=== PATIENT | female | born 1985 | race Hispanic/Latino ===

== ENCOUNTER 2017-11-17 05:04 | Inpatient (IN) | payer BC ==
[2017-11-17 06:06] VITALS: BMI 33.8
[2017-11-17] MEDS ORDERED: Lactated Ringer's 1,000 ML IV ONE (06:40)
[2017-11-17] MEDS ORDERED: Lactated Ringer's 1,000 ML IV SCH (06:45)
--- NOTE | 2017-11-17 09:49 | OBADHP ---
Datetime: 11/17/2017 06:44 Admit Comment, IP Provider: at 40 weeks and 6 days gestational age presents to OB ED complaini ng of contractions. Patient denies any vaginal bleeding or leakage of fluids. Patient reports good fe quinn movement. Patient with history of prior section. Patient with ultrasound done on 018 which reported polyhydramnios. Past medical history denies Past surgical history Medications vitamins No known drug allergies Obstetrical history full-term 1 Social history no tobacco, no drugs, no alcohol Physical exam: refer to physical exam findings Assessment: 40 weeks and 6 days gestational age, prior section, polyhydramnios. Possible early/latent labor. Plan: Admit to labor and delivery for management. Discussed plan with patient and all patient questions answered. Pelvic Type - PN: Adequate Extremities - PN: Normal Abdomen - PN: Normal Back - PN: Normal Breast - PN: Normal Lungs - PN: Normal Heart - PN: Normal Thyroid - PN: Normal Neurologic - PN: Normal HEENT - PN: Normal General - PN: Normal FHR - Baseline A Provider: 130s-140s Membranes, Provider: Intact Contraction Comments Provider: occasional IP Hx Assessment: The History has been Reviewed and is Current Vital Signs Provider: Reviewed; Within Normal Limits IP Chief Complaint: Uterine contractions NICHD Variability Prov Fetus A: Moderate 6-25bpm NICHD Accel Fetus A IP Provider: [id number] FHR Category Provider Fetus A: Category I NICHD Decel Fetus A IP Provider: None Dilatation, Provider: 3-4 Effacement, Provider: 50 Station, Provider: -2 Genitourinary Exam: Normal DTRs - PN: Normal EGA AdmitDate IP: 40.6 IP Adm Impression: Term, intrauterine IP Admit Plan: Admit to unit; Initiate protocol
[2017-11-17 09:54] LABS: BASO % 0.3 % (0.0-2.0); EOS # 0.1 K/uL (0.0-0.7); EOS % 0.5 % (0.0-4.0); HEMOGLOBIN 13.5 g/dL (12.0-16.0); LYMPH # 2.4 K/uL (1.0-4.3); LYMPH % 16.6 % (20.0-40.0); MEAN CELL VOLUME 92.4 fl (81.0-99.0); MEAN CORPUSCULAR HEMOGLOBIN 31.2 pg (27.0-31.0); MEAN CORPUSCULAR HGB CONC 33.8 g/dL (33.0-37.0); MEAN PLATELET VOLUME 7.5 fl (7.2-11.7); MONO # 0.6 K/uL (0.0-0.8); MONO % 4.5 % (0.0-10.0); NEUT # 11.2 K/uL (1.8-7.0); NEUT % 78.1 % (50.0-75.0); NRBC % 0.1 % (0.0-0.0); RBC 4.31 Mil/uL (3.80-5.20); RED CELL DISTRIBUTION WIDTH 15.2 % (11.5-14.5); WHITE BLOOD COUNT 14.3 K/uL (4.8-10.8)
[2017-11-17] MEDS: Lactated Ringer's 1,000 ML IV SCH ×2 (17:30→18:30)
[2017-11-17] MEDS ORDERED: ceFAZolin IV 2 gm in Dextrose 2 GM/50 ML BAG IVPB ONE (18:30)
[2017-11-17] MEDS ORDERED: Morphine 1 mg/ml preservative-free Inj(Duramorph) ONE (18:58)
--- NOTE | 2017-11-17 18:59 | OBPN ---
Datetime: 11/17/2017 18:42 Contraction Comments Provider: infrequent IP Progress Note Comment: Patient evaluated by Dr. Bonilla and counselled extensively by myself yeimy roy the course of the . Patient desired , understanding the risks of 1% rupture, increased risk of morbidity and to mother/baby and both and that going past her due date decreased her c jeniffer of a successful . Patient had an U/S that showed POLY = 22, no pocket over 8. Recommendation was to consider delivery soon. Patient was 4cm 11/14 and was irregularly desiree. Patient elected at that time understanding her risks and benefits to continue attempting . Explained to patient that on 11/18 would advise with with repeat if patient did not proceed with . Gaetano nt presented 11/17 in am feeling regular contractions, cervical exam was unchanged in comparison to . FHR= 130 mod martha, +accels no decels. Discussed plan of care with patient over the phone, patient elected to continue with observation. Patient at this time is 4/60/-2. Patient elects to proceed with repeat . RIsks/benefits of repeat discussed, consent signed, Ancef given for prop hylaxis and scds to be placed bilaterally. All questions answered. Dilatation, Provider: 4 Effacement, Provider: 60 Station, Provider: -2 Datetime: 11/17/2017 06:44 Membranes, Provider: Intact FHR - Baseline A Provider: 130s-140s Vital Signs Provider: Reviewed; Within Normal Limits NICHD Accel Fetus A IP Provider: [id number] FHR Category Provider Fetus A: Category I NICHD Variability Prov Fetus A: Moderate 6-25bpm NICHD Decel Fetus A IP Provider: None
[2017-11-17] MEDS ORDERED: ePHEDrine 50 mg/ml Inj ONE (19:34)
--- NOTE | 2017-11-17 20:27 | OBDS ---
MATERNAL INFORMATION Provider Comments: Surgeon: Dr. Huang [employer] Operator:Dr. Bonilla Pre-op Dx: Previous x 1, declined , term Surgery: Repeat Post-op: same Findings: live female , cephalic, clear fluid, 7lbs 13oz, /, grossly nml tubes, ovaries, p lacenta, uterus EBL: 800mL Total input: 1000mL Anesthesia: spinal by Dr. Sellers COmplications: None Pathology: cord blood LABOR SUMMARY EDC: 11/11/2017 00:00 No. Babies in Womb: 1 LABOR INFORMATION Group B Beta Strep: Negative
[2017-11-17] MEDS ORDERED: DiphenhydrAMINE 50 mg/ml Inj IVP PRN (20:43)
[2017-11-17] MEDS ORDERED: Naloxone 0.4 mg/ml Inj (Adult) IVP PRN (20:43)
[2017-11-18] MEDS ORDERED: Lactated Ringer's 1,000 ML IV SCH (00:34)
[2017-11-18] MEDS ORDERED: DiphenhydrAMINE 50 mg/ml Inj IVP PRN (00:34)
[2017-11-18 06:46] LABS: HEMOGLOBIN 11.3 g/dL (12.0-16.0); MEAN CELL VOLUME 92.4 fl (81.0-99.0); MEAN CORPUSCULAR HEMOGLOBIN 31.4 pg (27.0-31.0); RBC 3.6 Mil/uL (3.80-5.20); RED CELL DISTRIBUTION WIDTH 15.3 % (11.5-14.5); WHITE BLOOD COUNT 15.9 K/uL (4.8-10.8)
[2017-11-18] MEDS: Multivitamin With Minerals Tab PO SCH (08:12)
[2017-11-18] MEDS ORDERED: Multivitamin With Minerals Tab PO SCH (09:00)
--- NOTE | 2017-11-18 11:17 | OBPPN ---
Datetime: 11/18/2017 11:13 PP Pain Prov: Within normal limits PP Nausea Prov: Denies PP Flatus Prov: No PP Breasts Prov: Normal PP Heart Prov: Normal PP Lungs Prov: Normal PP Abdomen/Uterus Prov: Normal PP Lochia Prov: Normal PP Vulva/Perineum Prov: Normal PP CVA Tenderness Prov: Normal PP Extremities Prov: Normal PP Comments Phys Exam Prov: FUndus firm under umbilicus Incision clean/dry/intact PP Impression Prov: Normal progression PP Plan Prov: Continue present management PP Progress Note Prov: Patinet denies CP, no SOB, noN/V, tolerating PO diet, ambulating/voiding well , mild lochia, abdominal pain tolerable with meds, no flatus A/P POD #1 1. Percocet/Motrin prn pain 2. Continue current orders 3. Encourage ambulation/ IP PP Procedures: None Vital Signs Provider PP: Reviewed; Within Normal Limits
--- NOTE | 2017-11-19 09:05 | OP ---
Copied To: Stacy Huang MD Attending MD: Stacy Huang MD PROCEDURE DATE: 11/17/17 SURGEON: Stacy Huang MD PHOTOGRAPH PRINTER: Caleb Bonilla MD PREOPERATIVE DIAGNOSES: Previous section x1, at term, declined vaginal after section. SURGERY: Repeat section. POSTOPERATIVE DIAGNOSES: Previous section x1, at term, declined vaginal after section. FINDINGS: Live female , cephalic presentation, 7 pounds and 13 ounces, 9 and 9 Apgars, clear fluids. Grossly normal tubes, ovaries, placenta and uterus. ESTIMATED BLOOD LOSS: 800 mL. TOTAL FLUID INPUT: 100 mL. URINE OUTPUT: 300 mL. ANESTHESIA: Spinal by Dr. Sellers. COMPLICATIONS: None. CONDITIONS: Stable. PATHOLOGY SPECIMEN: Cord blood. INDICATIONS: This is a 32-year-old G2, P1 at 40 plus weeks, previous who vocalized desire for . The patient has been counseled extensively in the office. The patient understands the risks and benefits of versus scheduled repeat . The patient over the last few weeks had verbalized with internet marketing coordinator that she wanted to . The patient presented to labor and delivery, had been desiree for the past two days with an unchanged cervix. At this point, the patient had decided that she did not want to continue to wait to go into labor and did not desire any longer to . After extensive counseling and discussion with the patient risks and benefits of both, the patient at this time expressed that she wanted to proceed with a repeat . Informed consent was signed by the patient, and we decided at this point to proceed with a repeat . Risks such as bleeding, infection, damage to surrounding organs were understood and verbalized. After informed consent was signed, we proceeded to OR. DESCRIPTION OF PROCEDURE: The patient was taken to the OR. Ancef was given preoperatively. SCDs were placed bilaterally. The patient was prepped and draped in a normal sterile fashion in dorsal supine position with a leftward tilt. A Pfannenstiel skin incision was made with a scalpel and carried through to the underlying layer of the fascia with the scalpel and the Bovie. The fascia was incised in the midline. The incision was extended laterally with the Bovie. Asiya clamps were used to tent up the inferior aspect of this incision, which was dissected off of the underlying pyramidalis muscles with the Bovie. In a similar fashion, we tented up the superior aspect of this incision, which we dissected off of the underlying rectus abdominis muscles with the Bovie. Muscles were tented up at the midline without clamps. We dissected carefully at the midline superiorly and inferiorly with good visualization of all underlying organs. The vesicouterine peritoneum was identified at the lower segment, grabbed with pickups, and the bladder flap was created with the Metzenbaum scissors. Lower uterine segment was incised in the transverse fashion with the scalpel. Uterine cavity was entered. The incision was extended manually. The infant was delivered into cephalic presentation atraumatically followed by rest of the atraumatically. Cord was clamped and cut. was handed off to the awaiting pediatric team. Cord blood was obtained. Placenta was extracted manually. Uterus was exteriorized, cleared of all clots. Uterine incision was repaired with an 0-Vicryl incision, and a second imbricating incision was done with 0 Monocryl incision. Small certain parts of the hysterotomy site were reinforced with an 0 Vicryl incision. Overall hysterotomy site appeared to be hemostatic. The uterus was returned to the abdomen. Gutters were cleared of all clots. Again, hysterotomy site was inspected and found to be hemostatic. Peritoneum was closed with a 2-0 Monocryl. The muscles were reapproximated with the same stitch. Small bleeders on the muscles were cauterized with the Bovie. The fascia was closed with an 0 Vicryl suture, and the subcutaneous fat was closed with a plain gut suture. The skin was closed with a 4-0 Monocryl. Sponge, lap, and needle counts were correct x4. The patient was taken to recovery room in stable condition. There were no other complications. Stacy Huang MD
--- NOTE | 2017-11-19 10:23 | OBPPN ---
Datetime: 11/19/2017 10:17 PP Pain Prov: Within normal limits PP Nausea Prov: Denies PP Flatus Prov: Yes PP BM Prov: No PP Breasts Prov: Normal PP Heart Prov: Normal PP Lungs Prov: Normal PP Abdomen/Uterus Prov: Normal PP Lochia Prov: Normal PP Vulva/Perineum Prov: Normal PP CVA Tenderness Prov: Normal PP Extremities Prov: Normal PP C/S Incision Prov: Normal PP Progress Prov: Normal PP Impression Prov: Normal progression PP Plan Prov: Continue present management PP Progress Note Prov: She feels fine. No problems Blood type A pos A: S/P C/S day 2 PLAN" continue postop care Vital Signs Provider PP: Reviewed; Within Normal Limits
[2017-11-19] MEDS: Multivitamin With Minerals Tab PO SCH (12:05)
[2017-11-20] MEDS: Multivitamin With Minerals Tab PO SCH (08:49)
--- NOTE | 2017-11-20 10:50 | OBDCSUM ---
Datetime: 11/20/2017 08:00 Discharged to, Provider: Home Follow up at, Provider: [facility] Cotton Instr Activity: Normal activity; May be up to bathroom; May be up for meals; May Shower Disch Instr Diet: Regular Discharge Instructions, Provider: Specific instructions as noted Discharge Diagnosis, Provider: Term Delivered Discharge Time: 11/20/2017 12:02 Follow up in weeks, Provider: in one week Disch Referrals: None Discharge Instruct Comment, Prov: postop Disch Activity Restrictions: No exercising; No lifting; No sexual activity; Nothing in vagina - Inte rcourse, tampons, douche Discharge Comment, Provider: Discharge meds: Motrin 600 mg etc. hours when necessary vitamins Contraception after Delivery: Undecided
--- NOTE | 2017-11-20 10:50 | OBPPN ---
Datetime: 11/20/2017 09:13 PP Pain Prov: Within normal limits PP Nausea Prov: Denies PP Flatus Prov: Yes PP BM Prov: Yes PP Breasts Prov: Normal PP Heart Prov: Normal PP Lungs Prov: Normal PP Abdomen/Uterus Prov: Normal PP Lochia Prov: Normal PP Extremities Prov: Normal PP C/S Incision Prov: Normal PP Progress Prov: Normal PP Impression Prov: Normal progression PP Plan Prov: Discharge PP Progress Note Prov: s: No complaints. Patient taking Motrin for abdominal incision pain. Positive bowel movement yesterday and tolerating regular diet well. i: pod3 cd doing well p: d/w home f/u 10days IP PP Procedures: None Vital Signs Provider PP: Reviewed; Within Normal Limits Vital Signs Provider Details PP: 11.3
[2017-11-20 18:31] VITALS: BP 124/62; PULSE 75; RESP 20; TEMP 98.7; O2SAT 99
== END 2017-11-20 13:30 | disposition home or self-care (01) | DRG 765 ==
LOC: H.EROB2 05:04 → H.L&D 06:40 → H.OB/GYN 11-18 00:31
PROVIDERS: ADMIT Obstetrics & Gynecology; ATTEND Obstetrics & Gynecology
PROC: 10D00Z1 Extraction of Products of Conception, Low, Open Approach (ICD-10-PCS; principal; 2017-11-17)
PROC: 4A1HXCZ Monitoring of Products of Conception, Cardiac Rate, External Approach (ICD-10-PCS; 2017-11-17)
DX: O34.211 Maternal care for low transverse scar from previous cesarean delivery (principal); O40.3XX0 Polyhydramnios, third trimester, not applicable or unspecified; O48.0 Post-term pregnancy; Z37.0 Single live birth; Z3A.40 40 weeks gestation of pregnancy